=== PATIENT | male | born 1955 | race Caucasian/White ===

== ENCOUNTER 2018-03-28 07:02 | Day surgery (SDC) | payer OTHER ==
[~2018-03-28 07:02] MED LIST: LIDOCAINE 2% (SDV) 5 ML INJ
[2018-03-28] MEDS ORDERED: SOD CHLORIDE 0.9% 1,000 ML IV (08:00)
[2018-03-28] MEDS ORDERED: CEFAZOLIN 2 GM/50 ML (PMX) 50 ML IVPB (08:00)
[2018-03-28] MEDS ORDERED: HYDROmorphONE 1 MG/5 ML IV SYRINGE IV ×5 (09:30→10:30)
[2018-03-28] MEDS ORDERED: MEPERIDINE 25 MG INJ IV ×2 (09:30→10:30)
[2018-03-28] MEDS ORDERED: DIPHENHYDRAMINE 50 MG INJ IV ×2 (09:30→10:30)
[2018-03-28] MEDS ORDERED: ALBUTEROL 0.083% (NEB) 2.5 MG/3 ML AMP HHN (09:30)
[2018-03-28] MEDS ORDERED: METOCLOPRAMIDE 10 MG INJ IV ×2 (09:30→10:30)
[2018-03-28] MEDS ORDERED: FENTAnyl 50 MCG/ML VIAL IV ×5 (09:30→10:30)
[2018-03-28] MEDS ORDERED: FENTAnyl 50 MCG/ML VIAL (09:40)
[2018-03-28] MEDS ORDERED: ROPIVACAINE 0.5 % 30 ML VIAL (09:40)
[2018-03-28] MEDS: POLYMYXIN/BACITRACIN 1L IRRIG (10:06)
[2018-03-28] MEDS: BUPIVACAINE 0.25% (MPF) 30 ML INJ (10:06)
[2018-03-28] MEDS ORDERED: PROPOFOL 20 ML (10:24)
[2018-03-28] MEDS ORDERED: CEFAZOLIN 1 GM INJ (10:25)
[2018-03-28] MEDS ORDERED: ROCURONIUM 50 MG INJ (10:25)
[2018-03-28] MEDS ORDERED: SUGAMMADEX SODIUM 200 MG/2 ML VIAL IV (10:25)
[2018-03-28] MEDS ORDERED: SUCCINYLCHOLINE CHLORIDE 100 MG/5 ML SYG IV (10:25)
[2018-03-28] MEDS ORDERED: ONDANSETRON 4 MG INJ IV (10:30)
[2018-03-28] MEDS ORDERED: HYDROCODONE/APAP (5/325) TAB PO (11:00)
[2018-03-28] MEDS: ONDANSETRON 4 MG INJ IV (11:08)
[2018-03-28] MEDS: HYDROmorphONE 1 MG/5 ML IV SYRINGE IV (11:09)
[2018-03-28] MEDS: FENTAnyl 50 MCG/ML VIAL IV (11:10)
== END 2018-03-31 12:08 | disposition home or self-care (01) ==
LOC: SDS 07:02
DX: K40.90 Unilateral inguinal hernia, without obstruction or gangrene, not specified as recurrent (principal); I10 Essential (primary) hypertension; E66.09 Other obesity due to excess calories; N40.0 Benign prostatic hyperplasia without lower urinary tract symptoms
CPT/HCPCS: 49507